=== PATIENT | male | born 1985 | race Caucasian/White ===

== ENCOUNTER 2017-05-31 18:27 | Emergency (ER) | payer OTHER ==
[~2017-05-31] VITALS: Ht 188 cm; Wt 75.6 kg
[2017-05-31 19:12] VITALS: BP 134/82
== END 2017-05-31 22:46 | disposition home or self-care (01) ==
LOC: EME 18:27
DX: J02.9 Acute pharyngitis, unspecified (principal); F17.200 Nicotine dependence, unspecified, uncomplicated
CPT/HCPCS: 87651 90